=== PATIENT | female | born 1935 | race Caucasian/White ===

== ENCOUNTER 2017-03-11 13:30 | Observation (INO) | payer MEDICARE ==
[2017-03-11 15:15] LABS: #Eosinphils 0.1 thou/uL (0.0-0.7); #Lymphocytes 3.4 thou/uL (1.20-3.40); #Monocytes 0.8 thou/uL (0.11-0.59); #Neutrophils 7.2 thou/uL (1.40-6.50); %Basophils 0.3 % (0.0-1.0); %Eosinophils 0.5 % (0.0-10.0); %Lymphocytes 29.7 % (21.0-51.0); %Monocytes 7.2 % (0.0-10.0); Hematocrit 39.4 % (36.0-47.0); Mean Platelet Volume 7.1 fL (7.4-10.4); Red Blood Cell (RBC) Count 4.37 mill/uL (4.20-5.40); White Blood Cell (WBC) Count 11.5 thou/uL (4.8-10.8)
[2017-03-11 15:17] LABS: Bilirubin Negative (Negative); Blood, Urine Negative (Negative); Glucose, Urine (Dipstick) Negative (Negative); Ketone, Urine Negative (Negative); Nitrite Negative (Negative); Protein, Urine (Dipstick) Negative (Neg-Trace); Urobilinogen 0.2 mg/dL (0.2-1.0)
--- NOTE | 2017-03-11 15:20 | CT ---
CT BRAIN: History: 81-year-old female with right arm weakness. Technique: Noncontrast enhanced images of the brain obtained from the base of the skull through the vertex. Brai n and bone windows are obtained. FINDINGS: Images demonstrate diffuse cortical atrophy. 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 No evidence of acute intracranial masses or lesions seen. Ventricles are of baltazar l size. IMPRESSION: 1. Cortical atrophy. 2. No evidence of acute intracranial hemorrhages or strokes. POS: [facility]
[2017-03-11 15:34] LABS: Lactic Acid - Sepsis 3.5 mmol/L (0.5-2.2)
[2017-03-11 15:35] LABS: ALT (SGPT) 9 U/L (8-55); AST (SGOT) 14 U/L (5-34); Alkaline Phosphatase 76 U/L (40-150); Anion Gap 17 mmol/L (10-20); BUN (Urea Nitrogen) 21 mg/dL (9.8-20.1); Bilirubin, Total 0.8 mg/dL (0.2-1.2); CK (CPK) 69 U/L (29-168); Calc. Creatinine Clearance 0 mL/min (70-130); Calcium 9.9 mg/dL (7.8-10.44); Carbon Dioxide 23 mmol/L (23-31); Chloride 95 mmol/L (98-107); Estimated GFR-MDRD 46; Globulin 3.6 g/dL (2.4-3.5); Protein, Total 8.4 g/dL (6.0-8.3)
[2017-03-11 15:40] LABS: Troponin I Less than 0.010 ng/mL (< 0.028)
[2017-03-11] MEDS ORDERED: hydrALAZINE 20 MG/ML VIAL ONE (17:04)
[2017-03-11] MEDS ORDERED: Amitriptyline HCl 25 MG TAB PO SCH (17:30)
[2017-03-11] MEDS ORDERED: Labetalol HCl 100 MG/20 ML VIAL ONE (18:00)
[2017-03-11] MEDS ORDERED: Lorazepam 1 MG TAB ONE (18:19)
--- NOTE | 2017-03-11 19:48 | RAD ---
EXAM: CHEST TWO VIEWS 03/11/17 HISTORY: Elevated lactate. Slurred speech. Right arm weakness. COMPARISON: None. FINDINGS: Normal cardiac silhouette. Pulmonary vessels and hilum are normal. Costophrenic angles are clear. No masses or consolidation. No pneumothorax or osseous abnormality. IMPRESSION: No acute cardiopulmonary process. POS: [facility]
[2017-03-11 20:10] VITALS: BMI 25.0
[2017-03-11] MEDS ORDERED: Mag-Al 1200 mg/1200 mg/30 ML UDCUP PO PRN (20:12)
[2017-03-11] MEDS ORDERED: Acetaminophen 325 MG TAB PO PRN (20:12)
[2017-03-11] MEDS ORDERED: Labetalol HCl 100 MG/20 ML VIAL SLOW IVP PRN (20:12)
[2017-03-11] MEDS: cloNIDine 0.2 MG TAB PO SCH (20:47)
[2017-03-11] MEDS: Acetaminophen/Codeine 30-300mg Tablet PO PRN (20:48)
[2017-03-11] MEDS: Sodium Chloride 0.9% 1,000 ML IV SCH (20:58)
--- NOTE | 2017-03-11 22:53 | HP ---
PRIMARY CARE PHYSICIAN: Dr. Lawrence. CHIEF COMPLAINT: Slurred speech and right arm weakness. HISTORY OF PRESENT ILLNESS: Ms. Saab is a pleasant 81-year-old female that has a history of hypert ension as well as hypothyroidism. She was in her usual state of health until earlier today around 11 :00, she was watching TV with her when she began having some weakness in her right hand, she says that she could not handle a bottle of water and then she also noted that her speech seemed unint elligible. She says she noticed herself as well as her family members noted it. They brought her to the hospital and by the time she reached the hospital about an hour later in the emergency room, her symptoms had resolved. The patient says that she had an episode somewhat like this several years ag o and had gone to an urgent care center and told that she had had a small stroke. The other thing th at she notes is that her blood pressure is very difficult to control. She has tried multiple medicat ions over the years through the guidance of Dr. Lawrence and they had finally settled on clonidine and me toprolol for blood pressure control. Currently, the patient does not have any complaints except for some nausea and dizziness, but no chest pain or shortness of breath; however, while I was in the ER, interviewing the patient, she had a reaction to hydralazine in which her head felt full. She got tac hycardic and was having palpitations and feeling lightheaded, but after a few minutes, this feeling d id pass. REVIEW OF SYSTEMS: Constitutional: There have been no fevers, chills, no night sweats, no weight lo ss. HEENT: She has had some dizziness off and on. No sore throat, no rhinorrhea, neck pain, no florina nopathy. Pulmonary: No hemoptysis, no cough, no wheezing. Cardiovascular: She denies any chest pa in, no shortness of breath, no PND, no orthopnea. Gastrointestinal: No abdominal pain, no nausea, n o vomiting, no change in bowels. Genitourinary: No urinary frequency, hematuria, no hesitancy. Johnnie rologic: As in the history of present illness with the addition of no seizures. Skin/integument: N o skin changes. No rash. Psychiatric: No symptoms of anxiety or depression. PAST MEDICAL HISTORY: Significant for hypertension, fibromyalgia, depression, elevated cholesterol, gout, and hypothyroidism. PAST SURGICAL HISTORY: She has had an appendectomy, cholecystectomy, laminectomy, and hysterectomy. FAMILY HISTORY: No known heritable disorders. SOCIAL HISTORY: She is a nonsmoker, nondrinker. She is with children. CURRENT MEDICATIONS: Include levothyroxine 75 mcg daily, lorazepam 1 mg as needed, valacyclovir 1000 mg 3 times a day, promethazine 25 mg q.6 as needed, clonidine 2 tablets twice a day, and metoprolol extended-release 50 mg daily. PHYSICAL EXAMINATION: GENERAL: She is alert and oriented. She appears to be in no acute distress. VITAL SIGNS: Her blood pressure was 180/83, heart rate 95, respiratory rate of 18. HEENT: Her pupils are equal, round, and reactive. Extraocular muscles are intact. Sclerae are anic teric. Throat: There is no erythema, no exudates. NECK: No adenopathy, no bruits. LUNGS: Clear to auscultation. There is no wheezing, no rales. CARDIOVASCULAR: She has a normal S1 and S2. I do not appreciate an S3 or S4. No murmurs, clicks, o r rubs. ABDOMEN: Soft, it is nontender, nondistended. Positive for bowel sounds. There is no rebound or gu arding. EXTREMITIES: There is no clubbing, cyanosis, no edema. NEUROLOGICALLY: Her cranial nerves II through XII are intact. Muscle strength is 5/5 in both her up per and lower extremities. LABORATORY RESULTS: Urinalysis was essentially negative. Her white blood cell count was slightly el evated at 11.5, hemoglobin 13.5, hematocrit is 39.4, platelet count is 197. Sodium 131, potassium 3. 7, chloride 95, BUN of 21, creatinine 1.13, glucose is 95. Urinalysis is negative. LABORATORY AND X-RAY FINDINGS: EKG is sinus rhythm, the rate is [address]-wave gregg nges. ASSESSMENT AND PLAN: This is a pleasant 81-year-old female that presents to the emergency room with slurred speech and right arm weakness. This likely represents a transient ischemic attack. Her risk factors are hypertension and reported hyperlipidemia. In fact, the patient had just been in an [facility] yesterday for an extremely high blood pressure of 220s systolic. She will be placed i n observation. We will continue her usual home medications for blood pressure and use labetalol as n eeded. Given her strong reaction to hydralazine, we will avoid the hydralazine and consider adding a low-dose calcium-channel minoo such as amlodipine or Procardia. We will likely keep her blood pre ssure in the range of 150-170 and then slowly lowered the blood pressure over time given again her st destiney reaction to the hydralazine. We will get an echocardiogram as well as Doppler and check her lip id panel and place her on an aspirin a day and further recommendations will be based on her clinical course.
[2017-03-11] MEDS ORDERED: cloNIDine 0.1 MG TAB PO PRN (22:57)
[2017-03-12] MEDS: Acetaminophen/Codeine 30-300mg Tablet PO PRN ×4 (00:48→16:34)
[2017-03-12 04:15] LABS: #Lymphocytes 1.5 thou/uL (1.20-3.40); #Monocytes 0.6 thou/uL (0.11-0.59); #Neutrophils 7.5 thou/uL (1.40-6.50); %Basophils 0.3 % (0.0-1.0); %Eosinophils 0.3 % (0.0-10.0); %Lymphocytes 15.4 % (21.0-51.0); %Monocytes 6.4 % (0.0-10.0); Hematocrit 35.4 % (36.0-47.0); Mean Platelet Volume 7.4 fL (7.4-10.4); Red Blood Cell (RBC) Count 3.95 mill/uL (4.20-5.40); White Blood Cell (WBC) Count 9.6 thou/uL (4.8-10.8)
[2017-03-12 04:38] LABS: Anion Gap 13 mmol/L (10-20); BUN (Urea Nitrogen) 14 mg/dL (9.8-20.1); Calc. Creatinine Clearance 55 mL/min (70-130); Calcium 9.6 mg/dL (7.8-10.44); Carbon Dioxide 23 mmol/L (23-31); Chloride 101 mmol/L (98-107); Cholesterol 251 mg/dl (< 200 Desired); Estimated GFR-MDRD 65; LDL Cholesterol, Calculated 177 mg/dL
[2017-03-12] MEDS ORDERED: Levothyroxine Sodium 75 MCG TAB PO SCH (06:00)
[2017-03-12] MEDS ORDERED: Aspirin 325 mg Enteric Coated Tablet PO SCH (09:00)
[2017-03-12] MEDS ORDERED: Amlodipine 5 MG TAB PO SCH (09:00)
[2017-03-12] MEDS ORDERED: Enoxaparin Sodium 30 MG/0.3 ML SYRINGE SC SCH (09:00)
[2017-03-12] MEDS: cloNIDine 0.2 MG TAB PO SCH (09:14)
--- NOTE | 2017-03-12 09:21 | ULT ---
BILATERAL CAROTID DUPLEX ULTRASOUND INCLUDING COLOR AND SPECTRAL DOPPLER IMAGING: HISTORY: A 81-year-old female with TIA. FINDINGS: Visual plaque noted in both proximal right and left ICAs. PSV right ICA 91 cm/s, EDV 13 cm/s, ICA/CCA ratio 0.8 PSV left ICA 93 cm/s, EDV 21 cm/s, ICA/CCA ratio is 1. IMPRESSION: No hemodynamically significant stenosis. Bilateral proximal internal carotid artery visualized plaqu e and intimal thickening. Evidence for carotid artery atherosclerotic vascular disease. POS: [facility]
[2017-03-12] MEDS: Sodium Chloride 0.9% 1,000 ML IV SCH (13:58)
[2017-03-12 16:09] VITALS: BP 172/76; TEMP 98.3
--- NOTE | 2017-03-12 19:10 | DIS ---
DATE OF ADMISSION: 03/11/2017 DATE OF DISCHARGE: 03/12/2017 PRIMARY CARE PHYSICIAN: Dr. Lawrence. DISCHARGE DISPOSITION: Home. PRIMARY DISCHARGE DIAGNOSES: 1. Transient ischemic attack. 2. Hypertension, uncontrolled. 3. Hypothyroidism. 4. Recent diagnosis of herpes zoster. 5. Generalized anxiety. DISCHARGE MEDICATIONS: Include amlodipine 2.5 mg daily was added. She is to continue metoprolol suc cinate/hydrochlorothiazide one tablet daily and that is the 50/12.5, Valtrex 1 gram t.i.d., lorazepam 1 mg daily, levothyroxine 75 mcg daily, clonidine 0.2 mg twice a day, amitriptyline 25 mg at bedtime , and Tylenol No. 3 q.4 hours as needed for pain. PROCEDURES DONE DURING THE ADMISSION: The patient had a CT scan of the brain which was negative for any acute intracranial process. There was some chronic cerebral atrophy. She had bilateral carotid Dopplers which showed some plaque, but no flow limiting disease. Echocardiogram was pending at the t olga of discharge. CODE STATUS: FULL CODE. ALLERGIES: To LYRICA and HYDRALAZINE. HOSPITAL COURSE: Ms. Saab is a pleasant 81-year-old female who presented to the emergency room wit h a complaint of slurred speech and right upper extremity weakness. By the time she arrived to the e mergency room, her symptoms had improved. The patient was felt to have a transient ischemic attack. CT scan of the head was negative. She had the carotid Dopplers again, which were negative. It is f elt that her blood pressure was a major contributor to her symptoms as she has had blood pressures in the 200 systolic range even prior to admission. She also had some dyslipidemia with an LDL of 177 a nd for this reason, she is going to be discharged home on a statin, on Pravachol as well as a baby as pirin. She has been asked to follow up with Dr. Lawrence within 1 week or his nurse practitioner in [place] to have her blood pressure rechecked as amlodipine was added to her regimen and she is also being e valuated for home health to help with disease management and blood pressure monitoring as well.
--- NOTE | 2017-03-12 20:48 | CON ---
DATE OF CONSULTATION: 03/12/2017 CONSULTING PHYSICIAN: Hospitalist Service. IMPRESSION: 1. Possible transient ischemic attack versus hypertension related transient neurologic symptoms. 2. Shingles. 3. Hypertension. 4. Hyperlipidemia. PLAN: 1. Restart aspirin. 2. Pravastatin as ordered. 3. Tylenol #3 as needed for pain. 4. Acyclovir. 5. Office followup. HOSPITAL COURSE: Ms. Saab is a 81-year-old white female who had an outbreak of shingles despite ta tonya the vaccine about 4 years ago. She was in quite a bit of pain and noted that when she checked h er blood pressure, it was in the range of 239 systolic. She was at the house when the family thought that she had some slurred speech, a bit of word finding difficulty. There is no lateralized weaknes s or numbness. She had no nausea, vomiting, vertigo, double vision or alteration of consciousness. She was not complaining of a headache. She was taken to the emergency room for evaluation. She was admitted for further assessment and had a CT scan and carotid Doppler study done and nothing remarkab le was found. Her blood pressure came down to about 190/80. Her symptoms have not returned. She co ntinues to have pain in the right lower abdomen area, where her shingles outbreak occurred. PAST MEDICAL HISTORY: Hypertension and hyperlipidemia. SOCIAL HISTORY: No tobacco or alcohol use. FAMILY HISTORY: Noncontributory. ALLERGIES: HYDRALAZINE and LYRICA. REVIEW OF SYSTEMS: Otherwise, negative for any past focal neurologic deficits. PHYSICAL EXAMINATION: GENERAL: She is a healthy-appearing elderly lady, in no acute distress. HEENT: Pupils equal. Conjunctivae clear. Oropharynx clear. NECK: Supple. EXTREMITIES: No cyanosis, clubbing or edema. NEUROLOGIC: She is alert and appropriate. Her speech is fluent and clear. Cranial nerves II-XII ar e intact. Motor exam shows symmetric strength. She could stand and walk independently. Sensation i s intact. No abnormal movements were seen. IMAGING: Reviewed. SUMMARY: This is an elderly lady who was in quite a bit of pain and had a spike in blood pressure, t his might have been the underlying cause for her neurologic symptoms. Her workup is otherwise unrema rkable other than poor cholesterol panel. Apparently, this has been a longstanding problem that was difficult to address. I suggest that she follow up with her primary care doctor and update him on th e issues. I will be happy to help her out with pain management if needed.
--- NOTE | 2017-04-04 12:50 | EKG ---
Test Reason : Blood Pressure : / mmHG Vent. Rate : 083 BPM Atrial Rate : 083 BPM P-R Int : 152 ms QRS Dur : 082 ms QT Int : 348 ms P-R-T Axes : 059 033 060 degrees QTc Int : 408 ms Sinus rhythm with marked sinus arrhythmia Nospecific ST-T segment abnormalities Otherwise normal ECG Confirmed by ROOSEVELT MARTINES ([id number]), editor sound GARO MOORE ([id number]) on 04/04/2017 12:49:42 PM Referred By: Confirmed By:ROOSEVELT MARTINES
== END 2017-03-12 17:35 | disposition home or self-care (01) ==
LOC: ERS 13:30 → 2SE 19:16
PROVIDERS: ADMIT Internal Medicine; ATTEND Internal Medicine
DX: G45.9 Transient cerebral ischemic attack, unspecified (principal); I10 Essential (primary) hypertension; E03.9 Hypothyroidism, unspecified; B02.9 Zoster without complications; F41.9 Anxiety disorder, unspecified; F32.9 Major depressive disorder, single episode, unspecified; M10.9 Gout, unspecified; E78.00 Pure hypercholesterolemia, unspecified; Z79.899 Other long term (current) drug therapy; Z88.8 Allergy status to other drugs, medicaments and biological substances; Z90.49 Acquired absence of other specified parts of digestive tract; Z90.710 Acquired absence of both cervix and uterus; Z98.890 Other specified postprocedural states
CPT/HCPCS: 70450; 71020; 80048; 80053; 80061; 81003; 82550; 82553; 83605; 84484; 85025 ×2; 87040; 87086; 93005; 93306; 93880; 96361 ×3; 96372; 96374; 99285; G0378; 36415; J0360; J1650

== ENCOUNTER 2018-06-24 00:17 | Observation (INO) | payer MEDICARE ==
[2018-06-24] MEDS ORDERED: Morphine 4 MG/ML VIAL ONE (01:14)
[2018-06-24] MEDS ORDERED: Metoprolol Tartrate 5 MG/5 ML VIAL ONE (01:57)
[2018-06-24] MEDS ORDERED: Acetaminophen 500 MG TAB ONE (03:20)
[2018-06-24] MEDS ORDERED: Ondansetron ODT 4 MG TAB PO PRN (07:27)
[2018-06-24 07:55] LABS: Hemoglobin 11.4 g/dL (12.0-16.0); Mean Corpuscular Hemoglobin 29.5 pg (27.0-31.0); Mean Corpuscular Volume 86.9 fL (78.0-98.0); Mean Platelet Volume 7.8 fL (7.4-10.4); Platelet Count 171 thou/uL (130-400); Red Blood Cell (RBC) Count 3.86 mill/uL (4.20-5.40)
--- NOTE | 2018-06-24 08:02 | HP ---
PRIMARY CARE PROVIDER: Lenin Lawrence MD HISTORY OF PRESENT ILLNESS: Referred to the [facility] Service for altered mental status and hyponatremia. The patient states she has had a frontal headache. She states she has had problems with headaches all of her life. However, this one has lasted a little longer than usual. In review of mental status, she is oriented to person, place. She is a little not sure of what year it is. However, she is able to tell me what year she got and how long she has been . She remembers her physician. She has had no double vision. No dizziness. No syncope. PAST MEDICAL HISTORY: Pertinent for hypertension, mild early dementia, dyslipidemia, hypothyroidism. CURRENT MEDICATIONS: 1. Levothyroxine 75 mcg a day. 2. Lorazepam 1 mg once a day as needed. 3. Metoprolol 50 mg once a day. 4. Amitriptyline 25 mg a day. 5. Atorvastatin 20 mg a day. ALLERGIES: NO KNOWN DRUG ALLERGIES, EXCEPT FOR ADVERSE REACTION TO HYDRALAZINE. PAST SURGICAL HISTORY: Appendectomy, cholecystectomy, hysterectomy. PSYCHIATRIC HISTORY: Includes anxiety, depression. FAMILY HISTORY: No inheritable diseases. SOCIAL HISTORY: , lives with her . Nonsmoker, nondrinker. She is unable to decide on her resuscitation status. She states her is the surrogate decision maker. We will wait for his appearance. REVIEW OF SYSTEMS: CONSTITUTIONAL: Headaches, chronic. No fever or chills. EYES: No double vision, blurred vision, flashing lights. EAR NOSE AND THROAT: No ear pain or drainage. No nasal bleeding. No trouble swallowing. CARDIAC: No chest pain, orthopnea, or paroxysmal nocturnal dyspnea. RESPIRATIONS: No cough, wheezing or asthma. GASTROINTESTINAL: No nausea, vomiting, diarrhea, or abdominal pain. She does have a history of constipation. GENITOURINARY: No hematuria, dysuria, nocturia. MUSCULOSKELETAL: No pain or swelling in her arms or legs. NEUROLOGICAL: History of TIAs, on aspirin, low-dose. No focal weakness at this time. No seizure disorder. PSYCHIATRIC: History of anxiety, controlled with lorazepam. SKIN: No bruising, bleeding or rash. HEME/LYMPH: No tender or swollen lymph nodes in axilla, inguinal, cervical area. PHYSICAL EXAMINATION: GENERAL: She is alert, cooperative. States she feels fine, except for she is having a mild headache. VITAL SIGNS: Initial blood pressure was elevated 187/91. She is now currently 150/70, respirations 16, pulse 72, temperature 98.6. HEAD, EYES, EARS, NOSE, AND THROAT: Reveal pupils equal and round. Extraocular movements are intact. Sclerae are white. Tympanic membranes clear. Nose is clear. Oral mucous membranes are wet. NECK: Supple. No jugular venous distention, adenopathy or thyromegaly. CHEST: Clear to auscultation and percussion. HEART: Had a regular rate and rhythm. First and second heart sounds are clear. There are no murmurs, no gallops. ABDOMEN: Soft. Bowel sounds are normal. There is no hepatosplenomegaly. No masses. No rebound. No bruits. EXTREMITIES: Reveal no cyanosis, clubbing, or edema. PULSES: Carotid, radial, femoral, and dorsalis pedis pulses intact and symmetric. SKIN: Warm and dry without bruises or rash. HEME/LYMPH: No tender or swollen lymph nodes in the axilla, inguinal, cervical area. NEUROLOGICAL: Cranial nerves 2 through 12 are intact. Deep tendon reflexes symmetric. Strength symmetric. IMAGING DATA: EKG, regular sinus rhythm, PACs. No acute ST-T abnormality reviewed by me. Chest x-ray, underpenetrated. No cardiomegaly, CHF, or infiltrate reviewed by me. CT scan of the brain, no acute intracranial abnormality. LABORATORY DATA: Done at an outside emergency room in [place]; white count 11.7 with no left shift, hemoglobin 12.0, platelet count 156,000. Urine is clear. Sodium 127, repeat 129. Creatinine 1.21, followup 1.17. CO2 17 on both. Liver profile normal. ADMITTING DIAGNOSES: 1. Headaches. 2. Altered mental status, apparently resolved. 3. Hyponatremia appears to be chronic. I have reviewed old chart. 4. Hypertension. 5. Dyslipidemia. 6. Hypothyroidism. 7. Early dementia. PLAN: We will repeat CBC, basic metabolic profile. I see no reason for increased investigative studies at this point. We will discuss with family when available. Hopefully, she can be discharged soon. Job ID: [id number]
[2018-06-24] MEDS ORDERED: Enoxaparin Sodium 40 MG/0.4 ML SYRINGE ONE (08:06)
[2018-06-24 08:09] LABS: Anion Gap 15 mmol/L (10-20); BUN (Urea Nitrogen) 20 mg/dL (9.8-20.1); Calc. Creatinine Clearance 0 mL/min (70-130); Calcium 8.8 mg/dL (7.8-10.44); Carbon Dioxide 20 mmol/L (23-31); Chloride 102 mmol/L (98-107); Estimated GFR-MDRD 47; Glucose 107 mg/dL (83-110); Potassium 4.1 mmol/L (3.5-5.1); Sodium 133 mmol/L (136-145)
[2018-06-24 08:18] LABS: Eosinophils 1 % (0-10); Lymphocytes 37 % (21-51); MDiff Complete? YES; Monocytes 4 % (0-10); Neutrophil 57 % (42-75); Platelet Morphology Comment Appears Adequate; RBC Morphology Normal
[2018-06-24] MEDS ORDERED: Enoxaparin Sodium 40 MG/0.4 ML SYRINGE SC SCH (09:00)
[2018-06-24] MEDS ORDERED: Acetaminophen 325 MG TAB ONE (10:43)
[2018-06-24] MEDS: Acetaminophen 325 MG TAB PO PRN ×2 (10:46→14:46)
[2018-06-24 13:11] VITALS: BMI 26.1
--- NOTE | 2018-06-24 16:02 | DIS ---
DATE OF ADMISSION: 06/24/2018 DATE OF DISCHARGE: 06/24/2018 DISPOSITION: Discharged home. PRIMARY CARE PROVIDER: Lenin Lawrence MD FINAL DIAGNOSES: Headache, hypertension, dyslipidemia, hypothyroidism, chronic hyponatremia, and chronic kidney disease, stage 3. DISCHARGE MEDICATIONS: Same as home medicines, 1. Metoprolol-XL 25 mg a day. 2. Lipitor 20 mg a day. 3. Levothyroxine 75 mcg a day. 4. Lorazepam 1 mg q.i.d. p.r.n. anxiety. 5. Amitriptyline 25 mg p.o. at bedtime. ALLERGIES: HYDRALAZINE AND LYRICA. DIET: Heart healthy. PENDING AT TIME OF DISCHARGE: Nothing. CODE STATUS: Full. HOSPITAL COURSE: The patient was referred to the [email or web address] Service by [facility] with a headache, which lasted a little longer than usual. However, she states she has had headaches all of her life. There was question of abnormal mental status. However, she was alert, oriented, cooperative, and states that she felt fine except for a minor headache when I saw her. Her neurological exam was totally intact. She had a brain CT done the day before admission, which was read as normal. Her basic metabolic profile showed a creatinine of 1.12 and sodium 133. CBC, hemoglobin 11.4, white count 8.0, and platelet count 171,000. The patient was monitored. She continues to feel fine. She is being discharged home. CONSULTATIONS: None. PROCEDURES: None. FOLLOWUP: She has been asked to follow up with Dr. Lawrence in 7 days. Job ID: [id number]
[2018-06-24 17:00] VITALS: BP 162/84; TEMP 98
== END 2018-06-24 17:23 | disposition home or self-care (01) ==
LOC: ERS 00:17 → ERHOLD 01:30 → T4-B 12:32
PROVIDERS: ADMIT Internal Medicine; ATTEND Internal Medicine
DX: R51 Headache (principal); R41.82 Altered mental status, unspecified; E87.1 Hypo-osmolality and hyponatremia; E78.5 Hyperlipidemia, unspecified; E03.9 Hypothyroidism, unspecified; F03.90 Unspecified dementia, unspecified severity, without behavioral disturbance, psychotic disturbance, mood disturbance, and anxiety; F41.9 Anxiety disorder, unspecified; F32.9 Major depressive disorder, single episode, unspecified; I12.9 Hypertensive chronic kidney disease with stage 1 through stage 4 chronic kidney disease, or unspecified chronic kidney disease; N18.3 Chronic kidney disease, stage 3 (moderate); Z79.899 Other long term (current) drug therapy; Z88.8 Allergy status to other drugs, medicaments and biological substances
CPT/HCPCS: 80048; 85007; 85027; 96374; 96375; 99285; G0378 ×2; 36415; J1650; J2270

== ENCOUNTER 2022-06-12 20:47 | Inpatient (IN) | payer OTHER ==
[2022-06-13] MEDS ORDERED: Ondansetron PF 4 MG/2 ML Vial IVP PRN (00:15)
[2022-06-13] MEDS ORDERED: Ondansetron ODT 4 MG TAB SL PRN (00:15)
[2022-06-13] MEDS ORDERED: Acetaminophen 325 MG TAB PO PRN ×2 (00:15→16:38)
[2022-06-13 00:17] VITALS: BMI 31.8
[2022-06-13] MEDS: Sodium Chloride 0.9% 1,000 ML IV SCH ×2 (04:30→04:31)
[2022-06-13 04:56] LABS: #Eosinphils 0.1 thou/uL (0.0-0.7); #Lymphocytes 2.9 thou/uL (1.20-3.40); #Monocytes 0.7 thou/uL (0.11-0.59); #Neutrophils 4.3 thou/uL (1.40-6.50); %Basophils 0.6 % (0.0-1.0); %Eosinophils 1.4 % (0.0-10.0); %Lymphocytes 35.9 % (21.0-51.0); %Monocytes 8.7 % (0.0-10.0); %Neutrophils 53.5 % (42.0-75.0); Hemoglobin 11.3 g/dL (12.0-16.0); Mean Corpuscular HGB CONC 35.4 g/dL (32.0-36.0); Mean Corpuscular Hemoglobin 31.8 pg (27.0-31.0); Mean Corpuscular Volume 90.1 fl (78.0-98.0); Mean Platelet Volume 7.4 fL (7.4-10.4); Platelet Count 188 10x3/uL (130-400); RBC Distribution Width 11.6 % (11.5-14.5); Red Blood Cell (RBC) Count 3.54 mill/uL (4.20-5.40); White Blood Cell (WBC) Count 8.1 10x3/uL (4.8-10.8)
[2022-06-13 04:59] LABS: Hemoglobin A1c 5.7 % (4.0-6.0)
[2022-06-13 05:24] LABS: Magnesium 1.7 mg/dL (1.6-2.6)
[2022-06-13 05:27] LABS: ALT (SGPT) 15 U/L (8-55); AST (SGOT) 14 U/L (5-34); Albumin 3.9 g/dL (3.4-4.8); Alkaline Phosphatase 71 U/L (40-110); Anion Gap 17 mmol/L (10-20); BUN (Urea Nitrogen) 20 mg/dL (9.8-20.1); Bilirubin, Total 0.3 mg/dL (0.2-1.2); Calc. Creatinine Clearance 45 mL/min (70-130); Calcium 8.7 mg/dL (7.8-10.44); Carbon Dioxide 20 mmol/L (23-31); Chloride 96 mmol/L (98-107); Estimated GFR 46; Globulin 2.3 g/dL (2.4-3.5); Glucose 93 mg/dL (83-110); Potassium 3.6 mmol/L (3.5-5.1); Protein, Total 6.2 g/dL (5.8-8.1); Sodium 129 mmol/L (136-145)
[2022-06-13] MEDS: Levothyroxine Sodium 75 MCG TAB PO SCH (05:41)
[2022-06-13] MEDS ORDERED: Magnesium 2 GM/50 ML(in water) 2 GM in Premix Bag 1 BAG IVPB SCH (07:00)
[2022-06-13] MEDS ORDERED: Carvedilol 3.125 MG TAB PO SCH (08:00)
[2022-06-13] MEDS ORDERED: FLU VACC QS2022-23(65YR UP)/PF 240 MCG/0.7 ML SYRINGE IM ONE (09:00)
[2022-06-13] MEDS: Aspirin Chewable 81 MG TAB PO SCH (13:16)
[2022-06-13] MEDS: Bupropion 150 MG XL TAB PO SCH (13:16)
[2022-06-13 14:09] LABS: Base Excess (BEa) 0.3 mEq/L (-2.0 to +3.0); Calcium, Ionized (arterial) 1.14 mmol/L (1.12-1.30); Carboxyhemoglobin (COHb) 0.7 gm% (0.0-3.0); Hemoglobin (Hb) 12.7 g/dL (12.0-16.0); O2 Tension (PaO2), arterial 109.5 mmHg (> 60.0); pH, Arterial 7.56 (7.35-7.45)
[2022-06-13 14:13] LABS: CO2 Tension 23.8 mmHg (35.0-45.0); Puncture Site LRA
[2022-06-13] MEDS ORDERED: hydrOXYzine 25 MG TAB PO SCH (16:00)
[2022-06-13] MEDS ORDERED: Losartan 25 MG TAB PO SCH (16:15)
[2022-06-13] MEDS ORDERED: hydrALAZINE 20 MG/ML VIAL SLOW IVP PRN (16:29)
[2022-06-13] MEDS ORDERED: Amitriptyline HCl 25 MG TAB PO SCH (21:00)
[2022-06-13] MEDS: hydrOXYzine 25 MG TAB PO SCH (21:36)
[2022-06-14] MEDS: Levothyroxine Sodium 75 MCG TAB PO SCH (05:10)
[2022-06-14 05:23] LABS: #Eosinphils 0.2 thou/uL (0.0-0.7); #Lymphocytes 2.1 thou/uL (1.20-3.40); #Monocytes 0.6 thou/uL (0.11-0.59); #Neutrophils 4.1 thou/uL (1.40-6.50); %Basophils 0.5 % (0.0-1.0); %Eosinophils 2.2 % (0.0-10.0); %Lymphocytes 30.2 % (21.0-51.0); %Monocytes 8.4 % (0.0-10.0); %Neutrophils 58.7 % (42.0-75.0); Hemoglobin 11.5 g/dL (12.0-16.0); Mean Corpuscular HGB CONC 33.9 g/dL (32.0-36.0); Mean Corpuscular Volume 91.4 fl (78.0-98.0); Mean Platelet Volume 7.2 fL (7.4-10.4); Platelet Count 205 10x3/uL (130-400); RBC Distribution Width 11.5 % (11.5-14.5); Red Blood Cell (RBC) Count 3.72 mill/uL (4.20-5.40); White Blood Cell (WBC) Count 7.1 10x3/uL (4.8-10.8)
[2022-06-14 05:44] LABS: ALT (SGPT) 15 U/L (8-55); AST (SGOT) 16 U/L (5-34); Albumin 3.7 g/dL (3.4-4.8); Alkaline Phosphatase 65 U/L (40-110); Anion Gap 14 mmol/L (10-20); BUN (Urea Nitrogen) 15 mg/dL (9.8-20.1); Bilirubin, Total 0.5 mg/dL (0.2-1.2); Calc. Creatinine Clearance 54 mL/min (70-130); Calcium 9.2 mg/dL (7.8-10.44); Carbon Dioxide 22 mmol/L (23-31); Chloride 101 mmol/L (98-107); Estimated GFR 56; Globulin 2.5 g/dL (2.4-3.5); Glucose 93 mg/dL (83-110); Potassium 4.1 mmol/L (3.5-5.1); Protein, Total 6.2 g/dL (5.8-8.1); Sodium 133 mmol/L (136-145)
[2022-06-14] MEDS ORDERED: Cosyntropin 250 MCG VIAL SLOW IVP SCH (06:05)
[2022-06-14] MEDS ORDERED: Carvedilol 3.125 MG TAB PO SCH ×2 (09:00→17:00)
[2022-06-14] MEDS ORDERED: Losartan 25 MG TAB PO SCH (09:00)
[2022-06-14] MEDS: Aspirin Chewable 81 MG TAB PO SCH (09:28)
[2022-06-14] MEDS: Bupropion 150 MG XL TAB PO SCH (09:29)
[2022-06-14] MEDS: hydrOXYzine 25 MG TAB PO SCH ×2 (09:29→15:53)
[2022-06-14 11:28] VITALS: TEMP 97.5
[2022-06-14 15:08] VITALS: BP 177/81
== END 2022-06-14 17:08 | disposition home health service (06) | DRG 641 ==
LOC: 2NO 20:47 → INTOOBSV 20:47 → OBSVTOIN 06-14 12:10
PROVIDERS: ADMIT Family Medicine; ATTEND Family Medicine
PROC: 4A033R1 Measurement of Arterial Saturation, Peripheral, Percutaneous Approach (ICD-10-PCS; principal; 2022-06-13)
DX: E87.1 Hypo-osmolality and hyponatremia (principal); N17.9 Acute kidney failure, unspecified; R07.89 Other chest pain; E87.3 Alkalosis; M94.0 Chondrocostal junction syndrome [Tietze]; R53.81 Other malaise; I08.3 Combined rheumatic disorders of mitral, aortic and tricuspid valves; N18.2 Chronic kidney disease, stage 2 (mild); Z20.822 Contact with and (suspected) exposure to COVID-19; M79.7 Fibromyalgia; F32.A Depression, unspecified; F03.90 Unspecified dementia, unspecified severity, without behavioral disturbance, psychotic disturbance, mood disturbance, and anxiety; F41.9 Anxiety disorder, unspecified; Z88.8 Allergy status to other drugs, medicaments and biological substances; Z79.899 Other long term (current) drug therapy; Z79.890 Hormone replacement therapy; Z79.82 Long term (current) use of aspirin; Z90.710 Acquired absence of both cervix and uterus; Z90.49 Acquired absence of other specified parts of digestive tract; Z82.3 Family history of stroke; Z82.49 Family history of ischemic heart disease and other diseases of the circulatory system
CPT/HCPCS: 36415; 36600; 78452; 80053; 80400; 82805; 83036; 83735; 83930; 83935; 84300; 84443; 85025; 85379; 93017; 93306; 96372; 96374; 96375; A9500; G0378; J0834; J1650; J3475; U0003; U0005